=== PATIENT | male | born 1965 | race Caucasian/White ===

== ENCOUNTER 2021-08-27 08:19 | Outpatient (CLI) | payer BC | END 2021-08-27 08:20 | disposition home or self-care (01) | LOC: CSHWCC 08:19 | PROVIDERS: ATTEND Nurse Practitioner Family | DX: S91.002D Unspecified open wound, left ankle, subsequent encounter (principal); R60.0 Localized edema | CPT/HCPCS: 29581; 99213; G0463 ==

== ENCOUNTER 2021-09-03 08:49 | Outpatient (CLI) | payer BC | END 2021-09-03 08:50 | disposition home or self-care (01) | LOC: CSHWCC 08:49 | PROVIDERS: ATTEND Nurse Practitioner Family | DX: S91.002D Unspecified open wound, left ankle, subsequent encounter (principal); R60.0 Localized edema | CPT/HCPCS: 29581 ==

== ENCOUNTER 2021-09-17 09:15 | Outpatient (CLI) | payer BC | END 2021-09-17 09:16 | disposition home or self-care (01) | LOC: CSHWCC 09:15 | PROVIDERS: ATTEND Nurse Practitioner Family | DX: S91.002D Unspecified open wound, left ankle, subsequent encounter (principal); R60.0 Localized edema | CPT/HCPCS: 29581; 99213; G0463 ==

== ENCOUNTER 2021-10-16 08:14 | Outpatient (CLI) | payer BC | END 2021-10-16 08:15 | disposition home or self-care (01) | LOC: CSHWCC 08:14 | PROVIDERS: ATTEND Preventive Medicine Undersea and Hyperbaric Medicine | DX: S91.002D Unspecified open wound, left ankle, subsequent encounter (principal); R60.0 Localized edema | CPT/HCPCS: 99213; G0463 ==

== ENCOUNTER 2021-11-16 09:23 | Outpatient (CLI) | payer BC | END 2021-11-16 09:24 | disposition home or self-care (01) | LOC: CSHWCC 09:23 | PROVIDERS: ATTEND Preventive Medicine Undersea and Hyperbaric Medicine | DX: S91.002D Unspecified open wound, left ankle, subsequent encounter (principal); R60.0 Localized edema | CPT/HCPCS: 99213; G0463 ==

== ENCOUNTER 2022-01-11 08:23 | Outpatient (CLI) | payer BC | END 2022-01-11 08:24 | disposition home or self-care (01) | LOC: CSHWCC 08:23 | PROVIDERS: ATTEND Nurse Practitioner Family | DX: S91.002D Unspecified open wound, left ankle, subsequent encounter (principal); R60.0 Localized edema ==